=== PATIENT | female | born 1990 | race Caucasian/White ===

== ENCOUNTER 2018-09-07 07:59 | Emergency (ER) | payer MEDICAID ==
[~2018-09-07] VITALS: Ht 160 cm; Wt 81.6 kg
[~2018-09-07 07:59] MED LIST: PHEDML PO; PRENATAL VITAMI1 TA1 PO
[2018-09-07 08:04] VITALS: Ht 160 cm; Wt 81.6 kg
[2018-09-07 10:56] VITALS: BP 112/67
== END 2018-09-07 10:56 | disposition home or self-care (01) ==
LOC: ED 07:59
DX: M54.5 Low back pain (principal)
CPT/HCPCS: J1885

== ENCOUNTER 2019-06-15 13:43 | Emergency (ER) | payer MEDICAID ==
[~2019-06-15] VITALS: Ht 160 cm; Wt 78.0 kg
[2019-06-15 13:47] VITALS: Ht 160 cm; Wt 78.0 kg
[2019-06-15 14:36] LABS: BASOPHIL % 0.2 % (0-2); PLATELET COUNT 354 x10^3mcL (130-400)
[2019-06-15 14:39] LABS: RED CELL DISTRIBUTION WIDTH 14.9 % (11.5-14.5)
[2019-06-15 14:53] LABS: CALCIUM 8.8 mg/dL (8.5-10.1); CHLORIDE SERUM 106 mmol/L (98-107); CREATININE SERUM 0.7 mg/dL (0.6-1.0); GFR1 > 60 mL/min; GLUCOSE SERUM 96 mg/dL (74-106); POTASSIUM SERUM 3.9 mmol/L (3.5-5.1); SODIUM SERUM 142 mmol/L (136-145)
[2019-06-15 14:57] LABS: ALKALINE PHOSPHATASE 80 U/L (46-116); ALT/SGPT 27 U/L (14-59); AST/SGOT 22 U/L (15-37); BILIRUBIN TOTAL 0.3 mg/dL (0.20-1.00); TOTAL PROTEIN, SERUM 7.3 g/dL (6.4-8.2)
[2019-06-15 14:58] LABS: ALBUMIN 3.3 g/dL (3.4-5.0)
[2019-06-15 15:22] VITALS: BP 110/64
== END 2019-06-15 15:22 | disposition home or self-care (01) ==
LOC: ED 13:43
PROVIDERS: Emergency Medicine
DX: R07.89 Other chest pain (principal)
CPT/HCPCS: 36415; 83880